=== PATIENT | male | born 1990 | race Caucasian/White ===

== ENCOUNTER 2024-12-18 13:10 | Outpatient (AMB) | payer OTHER, SELFPAY ==
--- NOTE | 2024-12-18 13:12 | A.OFFPC_ITS ---
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 Required: No Accompanied by: Self / Same As Patient Allergies No Known Allergies (No Known Allergies*) Allergy (Verified 12/18/24 13:35) Medication List - Last Reconciled 12/18/24 by CLARIBEL Deng No Known Home Meds Tobacco use date assessed: 12/18/24 Dental Screening Dental Screen Date: 12/18/24 Did you have a dental visit in the last 12 months?: Yes Did you have a dental problem in the last 6 months where you did not have access to dental care?: No Was dental information given to patient?: Patient has dentist HPI 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 The patient reports a history of elevated blood pressure readings, typically around 130/98 mmHg, with a recent measurement of 138/102 mmHg in the clinic. He has not been on any antihypertensive medications and has not had a primary care provider for over 10 years. The patient acknowledges occasional stress and ca ffeine intake, which may contribute to elevated readings. The patient experiences erectile dysfunction, for which he occasionally uses off-brand Viagra, approximately once a month. He reports no issues with achieving erections but sometimes has difficulty maintaining them, which he attributes to anxiety. The patient has a history of asthma diagnosed in childhood but has not used an inhaler or experienced significant symptoms in recent years. His girlfriend reports that he snores and has audible breathing during sleep, raising concerns about possible sleep apnea. The patient reports intermittent leg weakness and discomfort after long work shifts, which he attributes to prolonged standing and possible poor circulation. He denies numbness or tingling but notes a sensation of weakness, particularly after extended periods of standing or sitting. Family history includes multiple sclerosis in his maternal grandmother. The patient denies any significant medical issues on his paternal side. 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 1. Little interest or pleasure in doing things: not at all 2. Feeling down, depressed, or hopeless: not at all 3. Trouble falling or staying asleep, or sleeping too much: not at all 4. Feeling tired or having little energy: not at all 5. Poor appetite or overeating: not at all 6. Feeling bad about yourself - or that you are a failure or have let yourself or your family down: not at all 7. Trouble concentrating on things, such as reading the newspaper or watching television: not at all 8. Moving or speaking so slowly that other people could have noticed. Or the opposite - being so fidgety or restless that you have been moving around a lot more than usual: not at all 9. Thoughts that you would be better off or of hurting yourself in some way: not at all Total score: 0 Depression Screening Interpretation: Negative Depression Screening Done: Yes 25891 - PHQ-9 Billing: Yes Source: Developed by Drs. Aleks Kirk, Willa BParth Canales and colleagues, with an educational kianna from [employer]. Thrive Questionnaire Date Thrive assessed: 12/18/24 I am a: Patient What is your living situation today?: I have a steady place to live Within the past 12 months, did the food you bought not last and you didn't have the money to get more?: Never true Within the past 12 months, did you worry whether your food would run out before you got money to buy more?: Never true Do you have trouble paying for medicines?: No Do you have trouble getting transportation to medical appointments?: No Do you have trouble paying your heating and electricity bill?: No Do you have trouble taking care of your child, family member or friend?: No Do you have trouble with day-to-day activities such as bathing, preparing meals, shopping, managing finances, etc.?: No Are you currently unemployed and looking for a job?: No Are you interested in more education?: Yes Please select the resources that you would like help with: None Currently or been in a relationship where the following occur: No concerns reported THRIVE Score: 0 AUDIT C Alcohol Use Questionnaire (AUDIT-C) 1. How often do you have a drink containing alcohol?: 2-4 times a month 2. How many drinks containing alcohol do you have on a typical day when you are drinking?: 1 or 2 3. How often do you have six or more drinks on one occasion?: Less than monthly Total Score: 3 BLACK-7 AMB Questionnaire BLACK-7 Date BLACK - 7 assessed: 12/18/24 Feeling nervous, anxious, or on edge: 1 = Several days Not being able to stop or control worryin = Not at all Worrying too much about different things: 1 = Several days Trouble relaxin = Several days Being so restless that it is hard to sit still: 0 = Not at all Becoming easily annoyed or irritable: 1 = Several days Feeling afraid as if something awful might happen: 0 = Not at all Total BLACK-7 score (0-4 normal; 5-9 mild; 10-14 moderate; 15-21 severe): 4 Source: Developed by Drs. Aleks Kirk, Parth Huffman and colleagues, with an educational kianna from [employer]. BLACK-7 Assessment Billing BLACK-7 Assessment Tool: BLACK-7 Assessment 60785 Review of Systems Const Denies headache(s), Reports snoring and Reports stops breathing during sleep Eyes Denies loss of vision ENT Denies vertigo, Denies dizziness, Denies headache(s) and Denies sore throat Card Denies chest pain, Denies leg edema and Denies lightheadedness Resp Denies cough, Denies hemoptysis, Reports snoring and Denies wheezing GI Denies abdominal pain, Denies melena, Denies constipation, Denies diarrhea and Denies vomiting Denies dysuria, Denies urinary frequency and Denies urinary urgency Musc Denies arthralgias, Denies joint swelling, Reports muscle weakness (BLE upon extensive standing or sitting), Denies numbness and Denies tingling Skin/Breast Reports other (Psoriasis) Neuro Denies Abnormal speech present, Denies behavioral changes, Denies vertigo, Denies dizziness, Denies headache(s), Denies loss of vision, Denies memory loss, Denies numbness and Denies tingling Psych Denies anxiety, Denies behavioral changes, Denies depression, Denies memory loss and Denies panic attacks Hiram/Lymph Denies easy bleeding and Denies easy bruising Aller/Immun Denies wheezing Physical exam (Primary Care) Vital Signs: Last Vital Signs Temp 97.1 F 12/18/24 13:17 Pulse 78 12/18/24 13:17 Resp 18 12/18/24 13:17 BP 138/102 H 12/18/24 13:53 Pulse Ox 98 12/18/24 13:17 Oxygen Delivery Method Room Air 12/18/24 13:17 BMI result Body Mass Index 40.1 Tobacco/Smoking Status: Tobacco use Status Tobacco use date assessed 12/18/24 12/18/24 13:24 Patient Tobacco Use Status Never used Tobacco 12/18/24 13:24 e-Cigarette/Vaping Use Never Used 12/18/24 13:24 PHQ-9: PHQ-9 Score PHQ-9: Total score 0 12/18/24 14:00 Depression Screening Interpretation: Negative Thrive Assessment: Date of Thrive Assessment Date Thrive assessed 12/18/24 12/18/24 13:24 Currently or been in a relationship where the following occur: No concerns reported Const General: healthy appearing, no acute distress, alert and awake Nutritional Appearance: well nourished Orientation/consciousness: oriented to person, oriented to place and oriented to time HENMT Ears: TM's normal bilaterally General nose exam: Normal nasal mucous membranes and turbinates present Eyes Conjunctivae: conjunctivae normal Sclerae: sclerae normal Pupils: Equal, round and reactive pupils present Neck Neck: Yes no lymphadenopathy and Yes no JVD Thyroid: Thyroid normal Carotids: no bruits Resp Effort & Inspection: normal respiratory effort and not tachypneic Auscultation: no crackles, no rales, no rhonchi and no wheezes Cardio Rate: regular rate Rhythm: regular rhythm Heart sounds: no murmurs and normal S1 and S2 GI Palpation (GI): Soft to palpation, nontender, no hepatomegaly and no splenomegaly Auscultation: normal bowel sounds General: Yes no CVA tenderness Back/Spine/Pelvis Back: no CVA tenderness Skin General skin exam: dry skin Rashes: rashes noted (Erythematous plaques with white scales to right elbow and left knee) Neuro General: oriented to person, oriented to place and oriented to time Cranial nerves: Yes Equal, round and reactive pupils present Speech: No Abnormal speech present Gait exam (Neuro): Normal gait present Motor exam (neuro): no tremor noted Extrem Right upper extremity: full ROM Left upper extremity: full ROM Right lower extremity: full ROM; no edema Left lower extremity: full ROM; no edema Psych Mental Status: mental status grossly normal Speech and movement: Normal speech and movement present Affect: normal affect Attitude: cooperative Thought process: Normal thought process present Results AMB Hemoglobin A1c AMB Hemoglobin A1c 5.4 % Last Edit by LUCIA Alvarado on 12/18/24 14 :00 Results Reviewed Results Reviewed: Laboratory Last Values Hgb A1c (Clinic) 5.4 % (4.0-6.0) 12/18/24 13:59 Coding Level of Care Code New Pt Level 4 (49840) Diagnoses Elevated blood pressure reading without diagnosis of hypertension R03.0 Paresthesia of bilateral legs R20.2 Apnea R06.81 Snoring R06.83 Psoriasis L40.9 Additional Codes PHQ-9 - 13216 - PHQ-9 Billing: Yes ([id number]) BLACK-7 Assessment Billing - BALCK-7 Assessment Tool: BLACK-7 Assessment 70250 ([id number]) Time Spent (min) 39 Assessment & Plan Assessment & Plan (1) Elevated blood pressure reading without diagnosis of hypertension: Code(s): R03.0 - Elevated blood-pressure reading, without diagnosis of hypertension Category: Medical Plan: Blood pressure 138/102. Lisinopril 5 mg daily starting, patient's girlfriend is a nurse and has been checking his blood pressure at home and telling him that his blood pressure is elevated. The patient will have her monitor his blood pressure and post the readings on the portal. Reinforced low salt diet and activity as tolerated. (2) Paresthesia of bilateral legs: Code(s): R20.2 - Paresthesia of skin Category: Medical Plan: Reports that his legs get extremely tired after a long day a work standing or sitting for extensive periods. Explained to the patient that this might be related to poor circulation, will also obtain bloodwork to further evaluate. He denies numbness and tingling sensations. (3) Apnea: Code(s): R06.81 - Apnea, not elsewhere classified Category: Medical Plan: Reports that his girlfriend has been telling him that he snores very loudly and that his breathing is irregular when he sleeps. The Stop Bang Questionnaire given to patient. He scored 5, neck circumference is 20 cm, this put him at high risk for sleep apnea. Home sleep study ordered to further eval. (4) Snoring: Code(s): R06.83 - Snoring Category: Medical Plan: same as above (5) Psoriasis: Code(s): L40.9 - Psoriasis, unspecified Category: Medical Plan: psoriasis plagues noted on right elbow and left knee. He declines treatment. Reports that they usually clears up with his lotion he has at home. Will continue to monitor. Orders: Orders AMB Hemoglobin A1c Today Z13.9 - Encounter for screening, unspecified Complete Blood Count Auto Diff Today R20.2 - Paresthesia of skin, Z76.89 - Persons encountering health services in other specified circumstances Comprehensive [place]. Panel Fast Today R20.2 - Paresthesia of skin, Z76.89 - Persons encountering health services in other specified circumstances UA CC w/rflx Micro + Cult Today R20.2 - Paresthesia of skin, Z76.89 - Persons encountering health services in other specified circumstances TSH reflex Free T4 Today R20.2 - Paresthesia of skin, Z76.89 - Persons encountering health services in other specified circumstances Vitamin D 25-OH Total Today R20.2 - Paresthesia of skin, Z76.89 - Persons encountering health services in other specified circumstances Lipid Panel Today R20.2 - Paresthesia of skin, Z76.89 - Persons encountering health services in other specified circumstances Vitamin B12 Today R20.2 - Paresthesia of skin, Z76.89 - Persons encountering health services in other specified circumstances RT home sleep study Today R06.81 - Apnea, not elsewhere classified, R06.83 - Snoring Medications: New lisinopril 5 mg PO DAILY 30 tabs 3RF
[2024-12-18 13:17] VITALS: BP 130/98; PULSE 78; RESP 18; TEMP 36.2; O2SAT 98; BMI 40.1
[2024-12-18 13:53] VITALS: BP 138/102
== END 2024-12-18 14:18 | disposition home or self-care (01) ==
LOC: HO.HMCH 13:11
DX: R03.0 Elevated blood-pressure reading, without diagnosis of hypertension (principal); R20.2 Paresthesia of skin; R06.81 Apnea, not elsewhere classified; R06.83 Snoring; L40.9 Psoriasis, unspecified; Z13.9 Encounter for screening, unspecified

== ENCOUNTER → 2024-12-18 13:10 | Outpatient (BNVA) | payer OTHER, SELFPAY | DX: Z00.00 Encounter for general adult medical examination without abnormal findings (principal); I10 Essential (primary) hypertension; N52.9 Male erectile dysfunction, unspecified; J45.909 Unspecified asthma, uncomplicated; R53.1 Weakness; R20.2 Paresthesia of skin; R06.81 Apnea, not elsewhere classified; R06.83 Snoring; L40.9 Psoriasis, unspecified | CPT/HCPCS: 83036; 96127 ==

== ENCOUNTER 2025-03-05 08:26 | Outpatient (AMB) | payer OTHER, SELFPAY ==
--- NOTE | 2025-03-05 08:34 | A.OFFPC_ITS ---
Vital Signs 03/05/25 08:39 03/05/25 08:45 Height 6 ft Weight 293 lb BMI 39.7 BP 124/86 128/88 Blood Pressure Location Lt brachial Lt brachial Position Sitting Sitting Pulse 82 Pulse Source Pulse Oximeter Temp 97.3 F Temp Source Temporal Artery Scan Pulse Oximetry (%) 97 Oxygen Delivery Method Room Air Intake Visit Reasons: annual Travel Journalist Required: No Accompanied by: Self / Same As Patient Allergies No Known Allergies (No Known Allergies*) Allergy (Verified 03/05/25 08:49) Medication List - Last Reconciled 03/05/25 by CLARIBEL Deng albuterol sulfate 90 mcg/actuation (Ventolin HFA) 2 puffs inhalation Q4-6H PRN fluticasone propionate 50 mcg/actuation 1 spray intranasal BID lisinopril 5 mg PO DAILY loratadine 10 mg PO DAILY PRN Tobacco use date assessed: 03/05/25 Dental Screening Dental Screen Date: 03/05/25 Did you have a dental visit in the last 12 months?: Yes Did you have a dental problem in the last 6 months where you did not have access to dental care?: No Was dental information given to patient?: Patient has dentist HPI HPI Comments History of Present Illness Details Dentist: up to date Eye:up to date Snellen: Right: Left: Corrected vision: yes, glasses and contacts STI screening: Colonoscopy: Pap Smer: PHQ-9: Flu:not usually COVID: x2 on record, reports that he had at least three Tdap: given in office today Diet:regular Exercise: busy at work but no other exercise The patient is a 34 year old individual presenting for evaluation of breathing sounds during sleep, cough with mucus, and a growth on the left foot. The patient reports experiencing a breathing sound, particularly during sleep, but denies any difficulty breathing otherwise. A sleep study was previously ordered, but the patient has not yet been contacted for scheduling. The patient also has a cough with mucus and sinus congestion, which the patient believes is related to allergies or weather changes, specifically from hot to cold or changes in humidity. The patient had an inhaler during childhood for suspected asthma and reports having an indent in the chest which a doctor once said could lead to restrictive breathing. There is a growth on the bottom of the patient's left foot, which started after wearing ill-fitting shoes. This growth, identified as a corn, occasionally becomes inflamed and painful. Regarding health maintenance, the patient has had a dental visit within the year and undergoes annual eye exams for contact lenses. The patient has received at least three COVID-19 vaccines but did not get a flu vaccine this year. The patient's tetanus immunization status is uncertain, but the patient was covered within the 10-year window four years ago. 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 A Tdap vaccine will be administered today. Fasting lab work has been ordered, and the patient has been instructed on how to complete this at the hospital lab after an 8-12 hour fast. A follow-up appointment is scheduled for three months to review lab results and reassess current issues. The patient was also given instructions on how to access the patient portal. Social History - Employment: The patient has a very [employer] job and sometimes works long shifts, up to 14.5 hours. - Diet and Nutrition: The patient follow s a regular diet with no special modifications and reports recent coffee consumption. - Exercise: The patient does not have a formal exercise routine but considers the job to be physically active, achieving thousands of steps per day. Results - Blood Pressure: Office reading was 128 /88 mmHg. - A prior reading during the same visit was 124/86 mmHg. 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 1. Little interest or pleasure in doing things: not at all 2. Feeling down, depressed, or hopeless: not at all 3. Trouble falling or staying asleep, or sleeping too much: not at all 4. Feeling tired or having little energy: not at all 5. Poor appetite or overeating: not at all 6. Feeling bad about yourself - or that you are a failure or have let yourself or your family down: not at all 7. Trouble concentrating on things, such as reading the newspaper or watching television: not at all 8. Moving or speaking so slowly that other people could have noticed. Or the opposite - being so fidgety or restless that you have been moving around a lot more than usual: not at all 9. Thoughts that you would be better off or of hurting yourself in some way: not at all Total score: 0 Depression Screening Interpretation: Negative Depression Screening Done: Yes Source: Developed by Drs. Aleks Kirk, Willa Cordon, Parth Galvez and colleagues, with an educational kianna from [employer]. Thrive Questionnaire Date Thrive assessed: 03/05/25 I am a: Patient What is your living situation today?: I have a steady place to live Within the past 12 months, did the food you bought not last and you didn't have the money to get more?: Never true Within the past 12 months, did you worry whether your food would run out before you got money to buy more?: Never true Do you have trouble paying for medicines?: No Do you have trouble getting transportation to medical appointments?: No Do you have trouble paying your heating and electricity bill?: No Do you have trouble taking care of your child, family member or friend?: No Do you have trouble with day-to-day activities such as bathing, preparing meals, shopping, managing finances, etc.?: No Are you currently unemployed and looking for a job?: No Are you interested in more education?: Yes Please select the resources that you would like help with: None Currently or been in a relationship where the following occur: No concerns repor guillermo THRIVE Score: 0 AUDIT C Alcohol Use Questionnaire (AUDIT-C) 1. How often do you have a drink containing alcohol?: 2-4 times a month 2. How many drinks containing alcohol do you have on a typical day when you are drinking?: 1 or 2 3. How often do you have six or more drinks on one occasion?: Less than monthly Total Score: 3 BLACK-7 AMB Questionnaire BLACK-7 Date BLACK - 7 assessed: 03/05/25 Feeling nervous, anxious, or on edge: 1 = Several days Not being able to stop or control worryin = Not at all Worrying too much about different things: 1 = Several days Trouble relaxin = Several days Being so restless that it is hard to sit still: 0 = Not at all Becoming easily annoyed or irritable: 1 = Several days Feeling afraid as if something awful might happen: 0 = Not at all Total BLACK-7 score (0-4 normal; 5-9 mild; 10-14 moderate; 15-21 severe): 4 Source: Developed by Drs. Aleks Kirk, Willa Cordon, Parth Galvez and colleagues, with an educational kianna from [employer]. Review of Systems Narrative Review of Systems - Respiratory: Reports cough with mucus, sinus congestion, and a breathing sound during sleep. - Denies dyspnea when not sleeping. - HEENT: Reports symptoms consistent with environmental allergies, including nasal congestion and sneezing. - Integumentary: Reports a growth on the bottom of the left foot that is intermittently painful. - Constitutional: Denies feeling generally unwell. Const Denies headache(s), Reports snoring and Reports stops breathing during sleep Eyes Denies loss of vision ENT Denies vertigo, Denies dizziness, Denies headache(s), Denies sore throat and Reports other (intermittent sneezing) Card Denies chest pain, Denies leg edema and Denies lightheadedness Resp Denies cough, Denies hemoptysis, Reports snoring and Denies wheezing GI Denies abdominal pain, Denies melena, Denies constipation, Denies diarrhea and Denies vomiting Denies dysuria, Denies urinary frequency and Denies urinary urgency Musc Denies arthralgias, Denies joint swelling, Reports muscle weakness (BLE upon ex tensive standing or sitting), Denies numbness, Denies tingling and Reports other (raised area at the bottom of right foot) Skin/Breast Reports other (Psoriasis) Neuro Denies Abnormal speech present, Denies behavioral changes, Denies vertigo, Denies dizziness, Denies headache(s), Denies loss of vision, Denies memory loss, Denies numbness and Denies tingling Psych Denies anxiety, Denies behavioral changes, Denies depression, Denies memory loss and Denies panic attacks Hiram/Lymph Denies easy bleeding and Denies easy bruising Aller/Immun Denies wheezing Physical exam (Primary Care) Vital Signs: Last Vital Signs Temp 97.3 F 03/05/25 08:39 Pulse 82 03/05/25 08:39 BP 124/86 03/05/25 08:39 Pulse Ox 97 03/05/25 08:39 Oxygen Delivery Method Room Air 03/05/25 08:39 BMI result Body Mass Index 39.7 Tobacco/Smoking Status: Tobacco use Status Tobacco use date assessed 03/05/25 03/05/25 08:46 Patient Tobacco Use Status Never used Tobacco 03/05/25 08:46 e-Cigarette/Vaping Use Never Used 03/05/25 08:46 PHQ-9: PHQ-9 Score PHQ-9: Total score 0 03/05/25 08:55 Depression Screening Interpretation: Negative Thrive Assessment: Date of Thrive Assessment Date Thrive assessed 03/05/25 03/05/25 08:46 Currently or been in a relationship where the following occur: No concerns reported Narrative Physical Exam - Vitals: Blood pressure is 128/88 mmHg. - An earlier reading was 124/86 mmHg. - HEENT: - Nose: Bilateral nasal turbinates are boggy and swollen, causing narrowing of the nasal passages. - Throat: Pharynx appears mildly dry. - Ears: Cerumen is present in the ear canals. - The right ear is sensitive on exam. - Respiratory: Lungs are clear to auscultation bilaterally. - Abdomen: Soft, non-tender to palpation. - Extremities: A corn is present on the plantar surface of the left foot and is tender to palpation. Const General: healthy appearing, no acute distress, alert and awake Nutritional Appearance: well nourished Orientation/consciousness: oriented to person, oriented to place and oriented to time [facility] Ears: TM's normal bilaterally General nose exam: Abnormal mucous membranes and turbinates present boggy bilateral and erythematous bilateral Eyes Conjunctivae: conjunctivae normal Sclerae: sclerae normal Pupils: Equal, round and reactive pupils present Neck Neck: Yes no lymphadenopathy and Yes no JVD Thyroid: Thyroid normal Carotids: no bruits Resp Effort & Inspection: normal respiratory effort and not tachypneic Auscultation: no crackles, no rales, no rhonchi and no wheezes Cardio Rate: regular rate Rhythm: regular rhythm Heart sounds: no murmurs and normal S1 and S2 GI Palpation (GI): Soft to palpation, nontender, no hepatomegaly and no splenomegaly Auscultation: normal bowel sounds General: Yes no CVA tenderness Back/Spine/Pelvis Back: no CVA tenderness Skin General skin exam: dry skin Neuro General: oriented to person, oriented to place and oriented to time Cranial nerves: Yes Equal, round and reactive pupils present Speech: No Abnormal speech present Gait exam (Neuro): Normal gait present Motor exam (neuro): no tremor noted Deep tendon reflexes (DTR's): Right triceps reflex intensity grade: 2+, Left triceps reflex intensity grade: 2+, Rt Biceps (C5, C6): 2+, Left biceps reflex intensity grade: 2+, Right brachioradialis reflex intensity grade: 2+, Left brachioradialis reflex intensity grade: 2+, Right patellar reflex intensity grade: 2+ and Left patellar reflex intensity grade: 2+ Extrem Right upper extremity: full ROM Left upper extremity: full ROM Right lower extremity: full ROM; no edema Left lower extremity: full ROM; no edema Psych Mental Status: mental status grossly normal Speech and movement: Normal speech and movement present Affect: normal affect Attitude: cooperative Thought process: Normal thought process present Immunizations Tenivac (PF) 5 Lf unit-2 Lf unit/0.5 mL intramuscular syringe Performing Provider: CLARIBEL Deng [facility] [facility] Administered by: LUCIA Alvarado on 03/05/25 09:03 Dose Route Admin Location Dispensed Lot Number Expiration Date [facility] Senior Investment Manager 0.5 mL IM Right Deltoid 0.5 mL [id number] 12/15/26 64611-600-02 [employer] Total Dispensed Waste 0.5 mL 0 % VIS Given Date VIS Provided VIS Publication Date 03/05/25 Single Vaccine 20 Eligibility Eligibility Date Funding Source Not [facility] Eligible 03/05/25 Private Coding Level of Care Code Est Pt Prev Care [id number]([id number]) Diagnoses Annual physical exam Z00.00 Elevated blood pressure reading without diagnosis of hypertension R03.0 Paresthesia of bilateral legs R20.2 Apnea R06.81 Snoring R06.83 [place] of foot L84 Allergic rhinitis, unspecified seasonality, unspecified trigger J30.9 Allergic rhinitis seasonality: unspecified Allergic rhinitis trigger: unspecified Time Spent (min) 35 Assessment & Plan Assessment & Plan (1) Annual physical exam: Code(s): Z00.00 - Encounter for general adult medical examination without abnormal findings Category: Medical Plan: Preventative guidelines reviewed with the patient. Patient has not completed preordered labs, and was encouraged to get these done as soon as possible. (2) Elevated blood pressure reading without diagnosis of hypertension: Code(s): R03.0 - Elevated blood-pressure reading, without diagnosis of hypertension Category: Medical Plan: Blood pressure was 138/102 on his last visit. Lisinopril 5 mg daily was started. BP todaay is 124/86. Reinforced low salt diet. Continue lisinopril 5 mg daily. (3) Paresthesia of bilateral legs: Code(s): R20.2 - Paresthesia of skin Category: Medical Plan: Reports that his legs get extremely tired after a long day a work standing or sitting for extensive periods. Explained to the patient that this might be related to poor circulation, will also obtain bloodwork to further evaluate. He denies numbness and tingling sensations. (4) Apnea: Code(s): R06.81 - Apnea, not elsewhere classified Category: Medical Plan: Reports that his girlfriend has been telling him that he snores very loudly and that his breathing is irregular when he sleeps. The Stop Bang Questionnaire given to patient. He scored 5, neck circumference is 20 cm, this put him at high risk for sleep apnea. Home sleep study was ordered, and the patient is waiting for appointment. (5) Snoring: Code(s): R06.83 - Snoring Category: Medical Plan: same as above (6) [place] of foot: Code(s): L84 - Corns and callosities Category: Medical Plan: [place] to the right lateral plantar aspect of foot gatherer to palpation podiatry referral placed (7) Allergic rhinitis: Code(s): J30.9 - Allergic rhinitis, unspecified Category: Medical Qualifiers: Allergic rhinitis seasonality: unspecified Allergic rhinitis trigger: unspecified Qualified Code(s): J30.9 - Allergic rhinitis, unspecified Plan: Bilateral boggy turbinates, scanty amount of dried up clear with yellowish streaks. Flonase inhaler ordered and loratadine 10 mg daily as need ordered.Limit exposure to allergens Air purifiers and dust filters Air conditioner in house, especially where sleeping Plan Plan Patient was informed and verbally consented to the use of an ambient scribe for clinic note documentation during this visit. 1. Allergic Rhinitis The patient's symptoms of cough, sinus issues, and sneezing, along with physical exam findings of swollen and boggy nasal turbinates, are consistent with allergic rhinitis, likely triggered by environmental factors and weather changes. A prescription for Flonase (fluticasone) nasal spray will be provided, with instructions to use one spray in each nostril twice daily initially, then reducing to once daily or as needed for symptom control. The patient was informed that this medication is also available [id number], but a prescription will be attempted to check for insurance coverage. 2. Hypertension The patient's blood pressure remains elevated, with a reading of 128/88 mmHg. This reading is confounded by the patient's recent coffee consumption. No medication adjustments will be made at this time, especially given the upcoming holidays. The patient is advised to reduce dietary salt intake, continue monitoring blood pressure at home, and attempt to take readings before drinking coffee to get a more accurate measurement. The patient will report readings via the patient portal and the condition will be re-evaluated at the next visit. 3. [place], Left Foot The patient has a painful growth on the bottom of the left foot, identified as a corn, which arose after wearing ill-fitting shoes. A referral to podiatry will be made for further evaluation and management, likely involving cryotherapy. 4. Suspected Sleep Apnea The patient reports breathing sounds during sleep. A referral for a sleep study has already been placed, and the patient is awaiting scheduling. Follow-up will occur once the study is completed. Discussion Notes I discussed with the patient that the exam findings of swollen nasal turbinates are consistent with allergies, which are likely causing the cough and sinus symptoms. I recommended starting Flonase nasal spray and explained how to use it. We reviewed the patient's elevated blood pressure readings and the likely contribution of recent coffee consumption. I advised against any medication changes today and instead recommended dietary salt reduction and home blood pressure monitoring before coffee intake. I confirmed the growth on the patient's foot is a corn and will place a referral to podiatry for removal. I also confirmed that a sleep study has been ordered for the breathing sounds during sleep. We discussed the importance of a Tdap booster due to the patient's uncertain immunization history and occupational risk, and the patient agreed to receive it today. I provided instructions for obtaining the ordered fasting labs and for setting up patient portal access. We will follow up in three months to review progress and lab results. Patient Instructions - You will receive a Tdap (tetanus) shot today. - Please go to the hospital lab to have your blood drawn. - You must fast (not eat or drink anything except water) for 8 to 12 hours before the blood test. - Use the Flonase nasal spray as prescribed: one spray in each nostril, two times a day for now. - Once you feel better, you can reduce this to once a day or just use it when you need it. - A referral will be sent to a foot doctor (podiatry) to have the corn on your left foot removed. - You will receive a call to schedule the sleep study that was previously ordered. - Try to reduce the amount of salt in your diet, especially around the holidays. - Continue to check your blood pressure at home. - Try to take a reading before you drink coffee in the morning and update your readings on the patient portal. - Before your next visit, please do not drink coffee that morning. - Schedule a follow-up appointment in three months. Orders: Orders Td Immunization Today Z23 - Encounter for immunization Referrals Podiatry Referral L84 - Corns and callosities Medications: New albuterol sulfate 90 mcg/actuation (Ventolin HFA) 2 puffs inhalation Q4-6H PRN 8.5 grams 3RF shortness of breath or wheezing loratadine 10 mg PO DAILY PRN 30 tabs 3RF allergy symptoms fluticasone propionate 50 mcg/actuation administer into each nostril 1 spray intranasal BID 16 grams 0RF
[2025-03-05 08:39] VITALS: BP 124/86; PULSE 82; TEMP 36.3; O2SAT 97; BMI 39.7
[2025-03-05 08:45] VITALS: BP 128/88
== END 2025-03-05 09:28 | disposition home or self-care (01) ==
LOC: HO.HMCH 08:26
DX: Z00.00 Encounter for general adult medical examination without abnormal findings (principal); R03.0 Elevated blood-pressure reading, without diagnosis of hypertension; R20.2 Paresthesia of skin; R06.81 Apnea, not elsewhere classified; R06.83 Snoring; L84 Corns and callosities; J30.9 Allergic rhinitis, unspecified; Z23 Encounter for immunization

== ENCOUNTER → 2025-03-05 08:26 | Outpatient (BNVA) | payer OTHER, SELFPAY | DX: Z00.00 Encounter for general adult medical examination without abnormal findings (principal); Z23 Encounter for immunization; R03.0 Elevated blood-pressure reading, without diagnosis of hypertension; R20.2 Paresthesia of skin; R06.81 Apnea, not elsewhere classified; R06.83 Snoring; L84 Corns and callosities; J30.9 Allergic rhinitis, unspecified | CPT/HCPCS: 90471; 90714; 96127 ==

== ENCOUNTER → 2025-03-19 06:51 | Outpatient (REF) | payer OTHER, SELFPAY ==
[2025-03-19 07:06] LABS: MANUAL DIFF FLAG NO
[2025-03-19 07:14] LABS: Hematocrit 44.7 % (42.0-52.0); Hemoglobin 15.2 g/dl (14.0-18.0); Imm Gran Abs Auto 0.01 X10*3/uL (0.00-0.03); Imm Gran Pct Auto 0.1 % (0.0-0.4); Lymphocytes Absolute Auto 2.2 X10*3/uL (1.2-4.9); Mean Corpuscular HGB Conc 34.0 g/dl (31.0-36.0); Mean Corpuscular Hemoglobin 28.6 pg (27.0-33.0); Mean Corpuscular Volume 84.0 fL (80.0-98.0); NRBC Abs Auto 0.000 X10*3/uL (0.0-0.012); NRBC Pct Auto 0.0 /100WBC (0.0-0.2); Platelet Count 219 X10*3/uL (160-400); Red Blood Count 5.32 X10*6/uL (4.60-5.80); White Blood Count 7.3 X10*3/uL (4.8-10.8)
[2025-03-19 07:46] LABS: Appearance Urine Clear; Glucose Urine UA Negative (Negative); PH 6.0 (5.0-9.0); Specific Gravity - Urine 1.020 (1.005-1.025)
[2025-03-19 07:58] LABS: Alanine Aminotransferase 43 U/L (0-40); Albumin Level 4.6 g/dL (3.5-5.0); Alkaline Phosphatase 81 U/L (39-117); Anion Gap 11 (12-20); Aspartate Amino Transferase 39 U/L (5-37); Blood Urea Nitrogen 16 mg/dL (9-16); Calcium 9.5 mg/dL (8.4-10.2); Carbon Dioxide 28 mmol/L (22-29); Chloride 104 mmol/L (96-108); Cholesterol 167 mg/dL (<200); Estimated Glomerular Filt Rate > 60; HDL Cholesterol 34 mg/dL (>40); Potassium 4.2 mmol/L (3.3-5.1); Sodium 139 mmol/L (135-145); Total Protein 7.3 g/dL (6.5-8.0); Triglycerides 169 mg/dL (<150)
[2025-03-19 08:09] LABS: Vitamin B12 536 pg/mL (200-900)
== END ==
LOC: HO.SL 06:51
DX: R06.83 Snoring (principal); R20.2 Paresthesia of skin; R06.81 Apnea, not elsewhere classified; Z76.89 Persons encountering health services in other specified circumstances; Z13.6 Encounter for screening for cardiovascular disorders
CPT/HCPCS: 36415; 80053; 80061; 81003; 82306; 82607; 84443; 85025; 95806

== ENCOUNTER → 2025-03-20 07:20 | Outpatient (BNV) | payer OTHER, SELFPAY | PROVIDERS: Visit Provider Psychiatry & Neurology Neurology | DX: G47.33 Obstructive sleep apnea (adult) (pediatric) (principal) | CPT/HCPCS: 95806 ==